=== PATIENT | female | born 1945 | race Caucasian/White ===

== ENCOUNTER 2024-04-06 10:06 | Outpatient (CLI) | payer MEDICARE ==
[~2024-04-06] VITALS: Ht 170.2 cm; Wt 95.7 kg
[2024-04-06 10:30] LABS: ABG BASE EXCESS -0.6 mmol/L (-2.0-3.0); ABG HCO3 23.4 mmol/L (21.0-28.0); ABG OXYGEN SATURATION 94.7 % (94.0-98.0); ABG PCO2 (T) 36.8 mmHg (32.0-45.0); ABG PH (T) 7.422 (7.350-7.450); ABG PO2 (T) 71.8 mmHg (83.0-108.0); ALLEN'S TEST POSITIVE; FCOHb 4.1 % (0.5-1.5); FHHb 5.1 % (0.0-5.0); FMetHb 0.3 % (0.0-1.5); FO2Hb 90.5 % (94.0-98.0); MODE ROOM AIR
[2024-04-06] MEDS: albuterol 2.5 MG/3 ML nebule NEB PRN (11:09)
[2024-04-06 11:21] VITALS: PULSE 84; RESP 15; O2SAT 94
[2024-04-06 11:34] VITALS: PULSE 77; RESP 16
== END 2024-04-06 23:59 | disposition home or self-care (01) ==
LOC: RT 10:06
PROVIDERS: ATTEND Surgery
DX: J98.4 Other disorders of lung (principal)
CPT/HCPCS: 36600; 82803; 85018; 94060; 94727; 94729; 94760

== ENCOUNTER 2024-04-11 09:07 | Day surgery (SDC) | payer MEDICARE ==
[~2024-04-11] VITALS: Ht 170.2 cm; Wt 94.5 kg
[2024-04-11] VITALS (11 sets, daily range): BP systolic 116–158; BP diastolic 64–82; PULSE 70–86; RESP 16; TEMP 98; O2SAT 90–96
[2024-04-11] MEDS ORDERED: nitroGLYCERIN 0.4mg SUBLingual tab SL PRN (09:45)
[2024-04-11] MEDS ORDERED: DEXTROSE 15 GM of carb/4 tabs (each vial/BOTTLE has 4 tablets) PO PRN ×2 (09:50)
[2024-04-11] MEDS ORDERED: glucagon, human recombinant 1mg kit SUBCUT PRN (09:50)
[2024-04-11] MEDS ORDERED: dextrose 50%-water 50ml dispensing syringe IV PRN ×2 (09:50)
[2024-04-11 10:11] LABS: BASOPHILS % (AUTO) 0.5 % (0-1); EOSINOPHILS # (AUTO) 0.1 X10'3 (0-0.9); EOSINOPHILS % (AUTO) 1.2 % (0-6); HEMATOCRIT 43.7 % (35.0-45.0); HEMOGLOBIN 14.3 g/dl (12.0-16.0); LYMPHOCYTES # (AUTO) 1.4 X10'3 (1.1-4.8); LYMPHOCYTES % (AUTO) 18.4 % (21-51); MEAN CORPUSCULAR HEMOGLOBIN 32.4 PG (27.0-31.0); MEAN CORPUSCULAR HGB CONC 32.7 g/dL (33.0-36.5); MEAN PLATELET VOLUME 11.4 FL (7.4-10.4); MONOCYTES # (AUTO) 0.3 X10'3 (0-0.9); MONOCYTES % (AUTO) 4.3 % (2-12); NEUTROPHILS # (AUTO) 5.6 X10'3 (1.8-7.7); NEUTROPHILS % (AUTO) 75.6 % (42-75); PLATELET COUNT 177 X10'3 (140-440); RED BLOOD COUNT 4.42 X10'6 (4.20-5.60); RED CELL DISTRIBUTION WIDTH 15.5 % (11.5-14.5); WHITE BLOOD COUNT 7.4 X10'3 (4.5-11.0)
[2024-04-11] MEDS ORDERED: iohexol 350MG/ML 100ml bottle IV ONE (10:13)
[2024-04-11] MEDS ORDERED: midazolam 1 mg/ML 2ml injection ONE ×2 (10:13→11:12)
[2024-04-11] MEDS ORDERED: iohexol 350 MG/ML 50ML vial IV ONE (10:13)
[2024-04-11] MEDS ORDERED: LIDOcaine 1% 30ml preserv. free vial ONE (10:13)
[2024-04-11] MEDS ORDERED: fentaNYL/PF 50MCG/1 ML 2ML syringe ONE (10:13)
[2024-04-11] MEDS ORDERED: TELM80TA9 PO (10:24)
[2024-04-11] MEDS ORDERED: ATOR40TA72 PO (10:24)
[2024-04-11] MEDS ORDERED: IBUP1TAB11 PO (10:24)
[2024-04-11] MEDS ORDERED: ALBU18HF2 INH (10:24)
[2024-04-11] MEDS ORDERED: FOLI0.4T14 PO (10:24)
[2024-04-11] MEDS ORDERED: CELE-127 PO (10:24)
[2024-04-11] MEDS ORDERED: AMLO5TAB16 PO (10:24)
[2024-04-11] MEDS ORDERED: METF-900 PO (10:24)
[2024-04-11] MEDS ORDERED: METH2.5T55 PO (10:24)
[2024-04-11] MEDS ORDERED: CALC-336 PO (10:24)
[2024-04-11] MEDS: diphenhydrAMINE 25mg capsule PO PRN (10:30)
[2024-04-11] MEDS: LORazepam 0.5 MG tablet PO PRN (10:30)
[2024-04-11] MEDS: normal saline 1,000 ML IV SCH (10:32)
[2024-04-11 10:39] LABS: ALBUMIN 3.7 G/DL (3.4-5.0); ANION GAP 9 (8-16); BLOOD UREA NITROGEN 15 MG/DL (7-18); BUN/CREATININE RATIO 14.4 (10.0-20.0); CALCIUM 9.1 MG/DL (8.5-10.1); CHLORIDE 105 MMOL/L (99-107); CREATININE 1.04 MG/DL (0.40-0.90); GLUCOSE 197 MG/DL (70-104); POTASSIUM 4.6 MMOL/L (3.5-5.1); SODIUM 139 MMOL/L (135-145); TOTAL CARBON DIOXIDE 25.1 MMOL/L (24-32); eCRCL 42 ML/MIN; eGFR 51 ML/MIN
[2024-04-11 10:42] LABS: APTT 25 SECONDS (22-32); PROTHROMBIN TIME 10.3 SECONDS (9.0-12.0)
[2024-04-11] MEDS ORDERED: normal saline 1000ml 1,000 ML IV SCH (11:45)
[2024-04-11] MEDS ORDERED: ondansetron/PF 4mg/2ml inj IV PRN (11:45)
[2024-04-11] MEDS ORDERED: OXAZEpam 15mg capsule PO PRN (11:45)
[2024-04-11] MEDS ORDERED: proCHLORperazine 10 MG/2 ml inj IV PRN (11:45)
== END 2024-04-11 17:00 | disposition home or self-care (01) ==
LOC: SSTAY O 09:07
PROVIDERS: ATTEND Internal Medicine Cardiovascular Disease
DX: I25.119 Atherosclerotic heart disease of native coronary artery with unspecified angina pectoris (principal); I44.7 Left bundle-branch block, unspecified; I10 Essential (primary) hypertension; E11.9 Type 2 diabetes mellitus without complications; E66.9 Obesity, unspecified; J44.9 Chronic obstructive pulmonary disease, unspecified; Z68.32 Body mass index [BMI] 32.0-32.9, adult; Z88.5 Allergy status to narcotic agent; Z88.8 Allergy status to other drugs, medicaments and biological substances
CPT/HCPCS: 36415; 71046; 80048; 82948; 83036; 85025; 85610; 85730; 93005; 93458; 99152; A4615; A6258; C1760; C1769; J1644; J2001; J2250; J3010; J7030; Q0163; Q9967; Z7610; J3490

== ENCOUNTER 2024-04-27 05:38 | Inpatient (IN) | payer MEDICARE ==
[2024-04-20 15:14] LABS: BASOPHILS % (AUTO) 0.5 % (0-1); EOSINOPHILS # (AUTO) 0.1 X10'3 (0-0.9); LYMPHOCYTES # (AUTO) 1.6 X10'3 (1.1-4.8); MONOCYTES # (AUTO) 0.3 X10'3 (0-0.9); MONOCYTES % (AUTO) 4.1 % (2-12)
[2024-04-20 15:15] LABS: BILIRUBIN,URINE NEGATIVE (Neg); CLARITY,URINE CLEAR (Clear); COLOR,URINE YELLOW (Yellow); GLUCOSE, URINE >=1000 mg/dl (Neg); KETONES,URINE NEGATIVE (Neg); LEUKOCYTE ESTERASE ,URINE NEGATIVE (Neg); NITRITES, URINE POSITIVE (Neg); OCCULT BLOOD,URINE NEGATIVE (Neg); PROTEIN,URINE NEGATIVE (Neg); UROBILINOGEN,URINE 0.2 E.U/dL (0.2-1.0)
[2024-04-20 15:16] LABS: EOSINOPHILS % (AUTO) 0.9 % (0-6); LYMPHOCYTES % (AUTO) 20.4 % (21-51); MEAN CORPUSCULAR HEMOGLOBIN 32.6 PG (27.0-31.0); MEAN CORPUSCULAR HGB CONC 32.9 g/dL (33.0-36.5); MEAN PLATELET VOLUME 11.3 FL (7.4-10.4); NEUTROPHILS # (AUTO) 5.7 X10'3 (1.8-7.7); NEUTROPHILS % (AUTO) 74.1 % (42-75); PRE OP HEMATOCRIT 40.3 % (35.0-45.0); PRE OP HEMOGLOBIN 13.3 g/dL (12.0-16.0); PRE OP PLATELET COUNT 186 X10'3 (140-440); PRE OP WHITE BLOOD COUNT 7.7 10'3 (4.8-10.8); RED BLOOD COUNT 4.07 X10'6 (4.20-5.60)
[2024-04-20 15:18] LABS: UA COLLECTION TYPE CLN CATCH MIDSTREAM
[2024-04-20 15:20] LABS: BACTERIA,URINE 4+ /HPF (Neg); WBC,URINE TNTC /HPF (0-4)
[2024-04-20 15:21] LABS: MUCUS STRANDS MODERATE /LPF (Neg); SQUAMOUS EPITHELIAL CELL,UR MODERATE /LPF (FEW); WBC CLUMPS,URINE MODERATE /HPF (NEGATIVE)
[2024-04-20 15:28] LABS: PRE OP PROTIME 10.4 SECONDS (9.0-12.0)
[2024-04-20 15:30] LABS: ALBUMIN 3.4 G/DL (3.4-5.0); ALKALINE PHOSPHATASE 228 IU/L (46-116); BLOOD UREA NITROGEN 12 MG/DL (7-18); BUN/CREATININE RATIO 11.4 (10.0-20.0); CALCIUM 8.7 MG/DL (8.5-10.1); CHLORIDE 104 MMOL/L (99-107); CREATININE 1.05 MG/DL (0.40-0.90); PRE OP ALT 18 U/L (30-65); PRE OP ANION GAP 7 (8-16); PRE OP AST 12 U/L (10-37); PRE OP BILIRUB, TOTAL 0.5 MG/DL (0.0-1.0); PRE OP SODIUM 138 MMOL/L (135-145); TOTAL CARBON DIOXIDE 27.4 MMOL/L (24-32); TOTAL PROTEIN 6.8 G/DL (6.4-8.2); eGFR 50 ML/MIN
[2024-04-20 15:33] LABS: PRE OP GLUCOSE 280 MG/DL (70-104)
[2024-04-20 16:22] LABS: HEMOGLOBIN A1C 7.7 % (4.5-6.2)
[2024-04-27] VITALS (32 sets, daily range): BP systolic 130–196; BP diastolic 53–86; PULSE 72–94; RESP 15–29; TEMP 97.9–98.6; O2SAT 89–99
[~2024-04-27] VITALS: Ht 170.2 cm; Wt 98.5 kg
[2024-04-27] MEDS: cefazolin 2gm/D5W 100mL 100 ML IV ONE (05:30)
[~2024-04-27 05:38] MED LIST: AMLO5TAB16 PO; ATOR40TA72 PO; CALC600T98 PO; CELE-127 PO; FOLI0.4T14 PO; IBUP1TAB11 PO; METF-900 PO; METH2.5T55 PO; TELM80TA9 PO
[2024-04-27] MEDS: BUPIVAcaine 2.5mg/ml inj 50ml vial (contains preservative) ONE (06:40)
[2024-04-27] MEDS: BUPIVACAINE liposomal/PF 13.3 MG/ML vial IM ONE ×2 (06:41→07:11)
[2024-04-27] MEDS: albuterol 2.5 MG/3 ML nebule NEB ONE (06:53)
[2024-04-27] MEDS: famotidine 20mg tablet PO ONE (07:10)
[2024-04-27] MEDS: ringers solution, lacted 1,000 ML IV SCH ×2 (07:10→13:09)
[2024-04-27] MEDS: INDOCYANINE GREEN 25 MG/10 ML VIAL IV ONE (07:11)
[2024-04-27] MEDS ORDERED: propofol inj 20 ML IV ONE (07:35)
[2024-04-27] MEDS ORDERED: rocuronium 10mg/ml inj IV ONE (07:40)
[2024-04-27] MEDS: NORepinephrine 8mg/ 250ml NS 250 ML IV ONE (07:53)
[2024-04-27] MEDS ORDERED: proCHLORperazine 10 MG/2 ml inj IV PRN (08:05)
[2024-04-27] MEDS ORDERED: sevoflurane 250ml liquid IH ONE (09:24)
[2024-04-27] MEDS ORDERED: midazolam 1 mg/ML 2ml injection ONE (09:28)
[2024-04-27] MEDS ORDERED: fentaNYL /PF 50mcg/ml 5ml ampule ONE (09:28)
[2024-04-27] MEDS ORDERED: albumin (Human) 5% 250ml 250 ML IV ONE (10:34)
[2024-04-27] MEDS ORDERED: dexamethasone sod phosphate 4mg/ml inj. ONE (10:35)
[2024-04-27] MEDS ORDERED: acetaminophen 1,000mg/100ml IV 100 ML IV ONE (11:58)
[2024-04-27] MEDS ORDERED: ondansetron/PF 4mg/2ml inj ONE (11:59)
[2024-04-27] MEDS ORDERED: sugammadex 200mg/2ml injection IV ONE (12:23)
[2024-04-27] MEDS ORDERED: albuterol 2.5 MG/3 ML nebule NEB PRN (12:55)
[2024-04-27] MEDS ORDERED: HYDROcodone/acetaminophen 10/325mg tab PO PRN (12:55)
[2024-04-27] MEDS ORDERED: metoclopramide 5 mg/ml inj IV PRN (12:55)
[2024-04-27] MEDS ORDERED: morphine 4 MG/ML inj SYRINge IV PRN (12:55)
[2024-04-27] MEDS ORDERED: ondansetron/PF 4mg/2ml inj IV PRN (12:55)
[2024-04-27] MEDS: ondansetron/PF 4mg/2ml inj IV PRN (12:56)
[2024-04-27 13:00] LABS: ABG BASE EXCESS -2.4 mmol/L (-2.0-3.0); ABG HCO3 24.5 mmol/L (21.0-28.0); ABG OXYGEN SATURATION 88.7 % (94.0-98.0); ABG PCO2 (T) 48.7 mmHg (32.0-45.0); ABG PH (T) 7.314 (7.350-7.450); ABG PO2 (T) 56.3 mmHg (83.0-108.0); FCOHb 1.1 % (0.5-1.5); FHHb 11.1 % (0.0-5.0); FMetHb 0.3 % (0.0-1.5); FO2Hb 87.5 % (94.0-98.0); MODE ROOM AIR; TOTAL HEMOGLOBIN 12.4 G/dl (12.0-16.0)
[2024-04-27] MEDS: albuterol 2.5 MG/3 ML nebule NEB PRN (13:03)
[2024-04-27] MEDS: ketorolac trometh 15mg/ml vial 15 MG/ML ML IV SCH (14:04)
[2024-04-27 14:10] LABS: ABG BASE EXCESS -4.9 mmol/L (-2.0-3.0); ABG HCO3 21.5 mmol/L (21.0-28.0); ABG OXYGEN SATURATION 91.4 % (94.0-98.0); ABG PH (T) 7.304 (7.350-7.450); ABG PO2 (T) 64.6 mmHg (83.0-108.0); FCOHb 1.2 % (0.5-1.5); FHHb 8.5 % (0.0-5.0); FMetHb 0.3 % (0.0-1.5); MODE NASAL CANNULA; PATIENT TEMPERATURE 36.7; TOTAL HEMOGLOBIN 12.5 G/dl (12.0-16.0)
[2024-04-27] MEDS: hydrALAZINE 20mg/ml inj. IV PRN (14:16)
[2024-04-27] MEDS: meperidine/PF 25mg/ml syringe IV PRN ×3 (14:45→14:46)
[2024-04-27] MEDS: morphine 2 MG/ML inj. syringe IV PRN ×2 (14:46→14:47)
[2024-04-27] MEDS: morphine 4 MG/ML inj SYRINge IV PRN (14:47)
[2024-04-27] MEDS: HYDROmorphone inj. 0.5 MG/0.5 ML DISP.SYRIN IV PRN (15:29)
[2024-04-27] MEDS: ceFAZolin inj. 1,000 MG in dextrose 5%-water 50ml 50 ML IV SCH (16:52)
[2024-04-27] MEDS: potassium cl 20mEq in 1/2 NS 1,000 ML IV SCH (16:52)
[2024-04-27] MEDS ORDERED: glucagon, human recombinant 1mg kit SUBCUT PRN (17:30)
[2024-04-27] MEDS ORDERED: dextrose 50%-water 50ml dispensing syringe IV PRN ×2 (17:30)
[2024-04-27] MEDS ORDERED: DEXTROSE 15 GM of carb/4 tabs (each vial/BOTTLE has 4 tablets) PO PRN ×2 (17:30)
[2024-04-27] MEDS: HYDROcodone/acetaminophen 10/325mg tab PO PRN (19:17)
[2024-04-27] MEDS: METFORMIN 500 MG PO SCH (20:00)
[2024-04-27] MEDS: gabapentin 300mg capsule PO SCH (20:08)
[2024-04-27] MEDS: niCARDipine-NS 40mg/200ml IVPB 200 ML IV SCH (20:13)
[2024-04-27] MEDS: INSULIN LISPRO 100 UNIT/ML INSULN.PEN MULTI-DOSE SQ SCH (22:23)
[2024-04-28] VITALS (31 sets, daily range): BP systolic 93–153; BP diastolic 41–81; PULSE 65–90; RESP 12–24; O2SAT 91–98
[2024-04-28 02:39] LABS: BASOPHILS % (AUTO) 0.1 % (0-1); EOSINOPHILS % (AUTO) 0 % (0-6); HEMATOCRIT 35.3 % (35.0-45.0); HEMOGLOBIN 11.4 g/dl (12.0-16.0); LYMPHOCYTES # (AUTO) 0.7 X10'3 (1.1-4.8); LYMPHOCYTES % (AUTO) 7.7 % (21-51); MEAN CORPUSCULAR HEMOGLOBIN 31.5 PG (27.0-31.0); MEAN CORPUSCULAR HGB CONC 32.2 g/dL (33.0-36.5); MEAN PLATELET VOLUME 11.2 FL (7.4-10.4); MONOCYTES # (AUTO) 0.6 X10'3 (0-0.9); MONOCYTES % (AUTO) 6.4 % (2-12); NEUTROPHILS % (AUTO) 85.8 % (42-75); PLATELET COUNT 145 X10'3 (140-440); RED CELL DISTRIBUTION WIDTH 15.3 % (11.5-14.5); WHITE BLOOD COUNT 9.3 X10'3 (4.5-11.0)
[2024-04-28 02:46] LABS: ALANINE AMINOTRANSFERASE 21 U/L (12-78); ALBUMIN 2.8 G/DL (3.4-5.0); ALBUMIN/GLOBULIN RATIO 0.9 (1.1-1.5); ALKALINE PHOSPHATASE 131 IU/L (46-116); ANION GAP 3 (8-16); ASPARTATE AMINO TRANSFERASE 17 U/L (10-37); BILIRUBIN,TOTAL 0.5 MG/DL (0.1-1.0); BLOOD UREA NITROGEN 15 MG/DL (7-18); BUN/CREATININE RATIO 15.5 (10.0-20.0); CALCIUM 8.3 MG/DL (8.5-10.1); CHLORIDE 104 MMOL/L (99-107); CREATININE 0.97 MG/DL (0.40-0.90); GLUCOSE 263 MG/DL (70-104); MAGNESIUM 1.9 MG/DL (1.5-2.4); PHOSPHORUS 5.1 MG/DL (2.3-4.5); POTASSIUM 4.9 MMOL/L (3.5-5.1); SODIUM 136 MMOL/L (135-145); TOTAL CARBON DIOXIDE 28.8 MMOL/L (24-32); TOTAL PROTEIN 5.8 G/DL (6.4-8.2); eCRCL 45 ML/MIN; eGFR 55 ML/MIN
[2024-04-28 05:13] LABS: PLATELET ESTIMATE NORMAL
[2024-04-28 05:14] LABS: LARGE PLATELETS FEW
[2024-04-28] MEDS ORDERED: DIPHENHYDRAMINE PO SCH (08:00)
[2024-04-28] MEDS ORDERED: IBUPROFEN PO SCH (08:00)
[2024-04-28] MEDS: celeCOXIB 100mg capsule PO SCH (08:28)
[2024-04-28] MEDS: losartan 50mg tablet PO SCH (08:30)
[2024-04-28] MEDS: atorvastatin 20mg tablet PO SCH (08:31)
[2024-04-28] MEDS: amLODIPine 5mg tablet PO SCH (08:32)
[2024-04-28] MEDS: folic acid 0.4mg tablet PO SCH (08:34)
[2024-04-28] MEDS: calcium carbonate 500mg tablet PO SCH (08:34)
[2024-04-28] MEDS: furosemide 20 MG/2 ML vial IV ONE (12:44)
[2024-04-28] MEDS: ipratropium/albuterol 3ml nebule NEB SCH (15:13)
[2024-04-28] MEDS: magnesium oxide 400mg tablet PO SCH (16:28)
[2024-04-29] VITALS (33 sets, daily range): BP systolic 92–130; BP diastolic 39–63; PULSE 74–99; RESP 15–28; O2SAT 91–100
[2024-04-29 06:48] LABS: BASOPHILS % (AUTO) 0.4 % (0-1); EOSINOPHILS # (AUTO) 0.1 X10'3 (0-0.9); EOSINOPHILS % (AUTO) 0.8 % (0-6); HEMATOCRIT 36.1 % (35.0-45.0); HEMOGLOBIN 11.7 g/dl (12.0-16.0); LYMPHOCYTES # (AUTO) 1.3 X10'3 (1.1-4.8); LYMPHOCYTES % (AUTO) 18.6 % (21-51); MEAN CORPUSCULAR HEMOGLOBIN 31.7 PG (27.0-31.0); MEAN CORPUSCULAR HGB CONC 32.3 g/dL (33.0-36.5); MEAN CORPUSCULAR VOLUME 98.1 FL (78-98); MEAN PLATELET VOLUME 11.4 FL (7.4-10.4); MONOCYTES # (AUTO) 0.6 X10'3 (0-0.9); MONOCYTES % (AUTO) 8.7 % (2-12); NEUTROPHILS % (AUTO) 71.5 % (42-75); PLATELET COUNT 148 X10'3 (140-440); RED BLOOD COUNT 3.68 X10'6 (4.20-5.60); RED CELL DISTRIBUTION WIDTH 15.7 % (11.5-14.5)
[2024-04-29 07:17] LABS: ALANINE AMINOTRANSFERASE 14 U/L (12-78); ALBUMIN 2.7 G/DL (3.4-5.0); ALBUMIN/GLOBULIN RATIO 0.8 (1.1-1.5); ALKALINE PHOSPHATASE 127 IU/L (46-116); ANION GAP 5 (8-16); ASPARTATE AMINO TRANSFERASE 15 U/L (10-37); BILIRUBIN,TOTAL 0.6 MG/DL (0.1-1.0); BLOOD UREA NITROGEN 20 MG/DL (7-18); BUN/CREATININE RATIO 18.9 (10.0-20.0); CALCIUM 8.5 MG/DL (8.5-10.1); CHLORIDE 103 MMOL/L (99-107); CREATININE 1.06 MG/DL (0.40-0.90); GLUCOSE 192 MG/DL (70-104); MAGNESIUM 2.1 MG/DL (1.5-2.4); PHOSPHORUS 4.6 MG/DL (2.3-4.5); SODIUM 137 MMOL/L (135-145); TOTAL CARBON DIOXIDE 28.9 MMOL/L (24-32); TOTAL PROTEIN 5.9 G/DL (6.4-8.2); eCRCL 41 ML/MIN; eGFR 50 ML/MIN
[2024-04-29] MEDS ORDERED: nicotine 21mg patch - 24 hr TD PRN (14:30)
[2024-04-29] MEDS: magnesium hydroxide 30ml (MOM) UD suspension PO SCH (20:18)
[2024-04-30] VITALS (22 sets, daily range): BP systolic 111–147; BP diastolic 50–68; PULSE 72–97; RESP 15–20; TEMP 97.1–97.9; O2SAT 92–96
[2024-04-30 05:40] LABS: BASOPHILS % (AUTO) 0.3 % (0-1); EOSINOPHILS # (AUTO) 0.1 X10'3 (0-0.9); EOSINOPHILS % (AUTO) 1.1 % (0-6); HEMATOCRIT 36.7 % (35.0-45.0); HEMOGLOBIN 11.8 g/dl (12.0-16.0); LYMPHOCYTES # (AUTO) 1.1 X10'3 (1.1-4.8); LYMPHOCYTES % (AUTO) 12.2 % (21-51); MEAN CORPUSCULAR HEMOGLOBIN 31.5 PG (27.0-31.0); MEAN CORPUSCULAR HGB CONC 32.1 g/dL (33.0-36.5); MEAN CORPUSCULAR VOLUME 98.3 FL (78-98); MEAN PLATELET VOLUME 10.5 FL (7.4-10.4); MONOCYTES # (AUTO) 0.9 X10'3 (0-0.9); MONOCYTES % (AUTO) 9.2 % (2-12); NEUTROPHILS # (AUTO) 7.2 X10'3 (1.8-7.7); NEUTROPHILS % (AUTO) 77.2 % (42-75); PLATELET COUNT 139 X10'3 (140-440); RED BLOOD COUNT 3.73 X10'6 (4.20-5.60); RED CELL DISTRIBUTION WIDTH 15.4 % (11.5-14.5); WHITE BLOOD COUNT 9.3 X10'3 (4.5-11.0)
[2024-04-30 05:49] LABS: ANION GAP 2 (8-16); BLOOD UREA NITROGEN 28 MG/DL (7-18); BUN/CREATININE RATIO 25.7 (10.0-20.0); CALCIUM 8.5 MG/DL (8.5-10.1); CHLORIDE 102 MMOL/L (99-107); CREATININE 1.09 MG/DL (0.40-0.90); GLUCOSE 207 MG/DL (70-104); MAGNESIUM 2.3 MG/DL (1.5-2.4); PHOSPHORUS 4.3 MG/DL (2.3-4.5); POTASSIUM 4.6 MMOL/L (3.5-5.1); SODIUM 135 MMOL/L (135-145); TOTAL CARBON DIOXIDE 31.4 MMOL/L (24-32); eCRCL 40 ML/MIN; eGFR 48 ML/MIN
[2024-04-30 05:50] LABS: ALANINE AMINOTRANSFERASE 15 U/L (12-78); ALBUMIN 2.6 G/DL (3.4-5.0); ALBUMIN/GLOBULIN RATIO 0.8 (1.1-1.5); ALKALINE PHOSPHATASE 131 IU/L (46-116); ASPARTATE AMINO TRANSFERASE 12 U/L (10-37); BILIRUBIN,TOTAL 0.7 MG/DL (0.1-1.0); TOTAL PROTEIN 5.8 G/DL (6.4-8.2)
[2024-04-30] MEDS: methoTREXATE 2.5mg tablet PO SCH (07:37)
[2024-04-30] MEDS: LORazepam 2 mg/ml vial IV ONE (21:35)
[2024-05-01] VITALS (21 sets, daily range): BP systolic 126–158; BP diastolic 63–76; PULSE 78–96; RESP 15–26; TEMP 97.2–98; O2SAT 84–98
[2024-05-01 09:57] LABS: BASOPHILS % (AUTO) 0.5 % (0-1); EOSINOPHILS # (AUTO) 0.2 X10'3 (0-0.9); LYMPHOCYTES # (AUTO) 0.9 X10'3 (1.1-4.8); LYMPHOCYTES % (AUTO) 11.2 % (21-51); MEAN CORPUSCULAR HEMOGLOBIN 31.6 PG (27.0-31.0); MEAN CORPUSCULAR HGB CONC 32.3 g/dL (33.0-36.5); MEAN CORPUSCULAR VOLUME 97.7 FL (78-98); MEAN PLATELET VOLUME 11.6 FL (7.4-10.4); MONOCYTES # (AUTO) 0.4 X10'3 (0-0.9); MONOCYTES % (AUTO) 4.9 % (2-12); NEUTROPHILS # (AUTO) 6.4 X10'3 (1.8-7.7); NEUTROPHILS % (AUTO) 81.4 % (42-75); PLATELET COUNT 167 X10'3 (140-440); RED BLOOD COUNT 3.79 X10'6 (4.20-5.60); RED CELL DISTRIBUTION WIDTH 15.3 % (11.5-14.5); WHITE BLOOD COUNT 7.9 X10'3 (4.5-11.0)
[2024-05-01 10:09] LABS: ALANINE AMINOTRANSFERASE 18 U/L (12-78); ALBUMIN 2.9 G/DL (3.4-5.0); ALBUMIN/GLOBULIN RATIO 0.8 (1.1-1.5); ALKALINE PHOSPHATASE 136 IU/L (46-116); ANION GAP 5 (8-16); ASPARTATE AMINO TRANSFERASE 15 U/L (10-37); BILIRUBIN,TOTAL 1.1 MG/DL (0.1-1.0); BLOOD UREA NITROGEN 22 MG/DL (7-18); BUN/CREATININE RATIO 26.5 (10.0-20.0); CALCIUM 9.2 MG/DL (8.5-10.1); CHLORIDE 102 MMOL/L (99-107); CREATININE 0.83 MG/DL (0.40-0.90); GLUCOSE 173 MG/DL (70-104); MAGNESIUM 2.8 MG/DL (1.5-2.4); PHOSPHORUS 4.2 MG/DL (2.3-4.5); POTASSIUM 4.7 MMOL/L (3.5-5.1); SODIUM 137 MMOL/L (135-145); TOTAL CARBON DIOXIDE 29.8 MMOL/L (24-32); TOTAL PROTEIN 6.4 G/DL (6.4-8.2); eCRCL 53 ML/MIN; eGFR 66 ML/MIN
[2024-05-02] VITALS (18 sets, daily range): BP systolic 113–157; BP diastolic 51–77; PULSE 66–96; RESP 16–22; TEMP 97.1–98; O2SAT 92–97
[2024-05-02 07:55] LABS: BASOPHILS % (AUTO) 0.5 % (0-1); EOSINOPHILS # (AUTO) 0.1 X10'3 (0-0.9); EOSINOPHILS % (AUTO) 1.6 % (0-6); HEMATOCRIT 34.3 % (35.0-45.0); HEMOGLOBIN 11.2 g/dl (12.0-16.0); LYMPHOCYTES % (AUTO) 12.2 % (21-51); MEAN CORPUSCULAR HEMOGLOBIN 31.8 PG (27.0-31.0); MEAN CORPUSCULAR HGB CONC 32.6 g/dL (33.0-36.5); MEAN CORPUSCULAR VOLUME 97.6 FL (78-98); MEAN PLATELET VOLUME 11.1 FL (7.4-10.4); MONOCYTES # (AUTO) 0.2 X10'3 (0-0.9); MONOCYTES % (AUTO) 2.6 % (2-12); NEUTROPHILS # (AUTO) 6.9 X10'3 (1.8-7.7); NEUTROPHILS % (AUTO) 83.1 % (42-75); PLATELET COUNT 178 X10'3 (140-440); RED BLOOD COUNT 3.51 X10'6 (4.20-5.60); RED CELL DISTRIBUTION WIDTH 15.4 % (11.5-14.5); WHITE BLOOD COUNT 8.3 X10'3 (4.5-11.0)
[2024-05-02 08:31] LABS: ALANINE AMINOTRANSFERASE 15 U/L (12-78); ALBUMIN 2.6 G/DL (3.4-5.0); ALBUMIN/GLOBULIN RATIO 0.8 (1.1-1.5); ALKALINE PHOSPHATASE 127 IU/L (46-116); ANION GAP 9 (8-16); ASPARTATE AMINO TRANSFERASE 17 U/L (10-37); BILIRUBIN,TOTAL 0.9 MG/DL (0.1-1.0); BLOOD UREA NITROGEN 21 MG/DL (7-18); CALCIUM 8.9 MG/DL (8.5-10.1); CHLORIDE 102 MMOL/L (99-107); CREATININE 0.84 MG/DL (0.40-0.90); GLUCOSE 167 MG/DL (70-104); MAGNESIUM 2.6 MG/DL (1.5-2.4); PHOSPHORUS 4.7 MG/DL (2.3-4.5); SODIUM 138 MMOL/L (135-145); TOTAL CARBON DIOXIDE 26.9 MMOL/L (24-32); eCRCL 52 ML/MIN; eGFR 65 ML/MIN
[2024-05-02] MEDS: Melatonin 3mg tablet PO SCH (20:41)
[2024-05-03] VITALS (12 sets, daily range): BP systolic 110–151; BP diastolic 57–65; PULSE 72–98; RESP 16–24; TEMP 97.6–99.1; O2SAT 94–97
== END 2024-05-03 19:11 | DRG 165 ==
LOC: PAS IN 05:38 → CICU 2S 15:15 → PCU 3S 04-30 10:20
PROVIDERS: ADMIT Surgery; ATTEND Surgery
PROC: 07B74ZZ Excision of Thorax Lymphatic, Percutaneous Endoscopic Approach (ICD-10-PCS; 2024-04-27)
PROC: 8E0W4CZ Robotic Assisted Procedure of Trunk Region, Percutaneous Endoscopic Approach (ICD-10-PCS; 2024-04-27)
PROC: 0W9B30Z Drainage of Left Pleural Cavity with Drainage Device, Percutaneous Approach (ICD-10-PCS; 2024-04-27)
PROC: 0BTG4ZZ Resection of Left Upper Lung Lobe, Percutaneous Endoscopic Approach (ICD-10-PCS; principal; 2024-04-27 09:26)
DX: C34.12 Malignant neoplasm of upper lobe, left bronchus or lung (principal); Z88.5 Allergy status to narcotic agent; R53.1 Weakness
CPT/HCPCS: 36415; 36600; 71045; 80053; 81001; 82803; 82948; 83036; 83735; 84100; 85008; 85018; 85025; 85610; 85730; 86885; 86900; 86901; 87077; 87081; 87088; 87186; 88305; 88309; 88331; 94640; 94664; 94668; 94760; 97110; 97116; 97161; 97530; A4615; A4618; A6213; A6222; A6253; A6258; A6449; A7000; A7048; C1758; C9250; C9290; G0378; J0131; J0360; J0690; J1100; J1171; J1815; J1885; J1940; J2060; J2250; J2405; J2704; J3010; J3480; J3490; J7060; J7120; J8610; P9045